=== PATIENT | female | born 1960 | race Caucasian/White ===

== ENCOUNTER 2020-10-27 12:06 | Emergency (ER) | payer OTHER ==
[2020-10-27] MEDS ORDERED: Aspirin 81 MG Tab.Chew PO ONE (12:23)
[2020-10-27] MEDS ORDERED: Sodium Chloride 0.9% 10 ML Syringe FLUSH PRN (12:23)
[2020-10-27] MEDS ORDERED: Nitroglycerin 0.4 MG Tab.SL SL PRN (12:25)
--- NOTE | 2020-10-27 12:25 | EDM.PDOC ---
ED HPI GENERAL MEDICAL PROBLEM - General Chief Complaint: Chest Pain Stated Complaint: chest pains Time Seen by Provider: 10/27/20 12:24 Source of Information: Reports: Patient, Old Records, RN, RN Notes Reviewed History Limitations: Reports: No Limitations - History of Present Illness INITIAL COMMENTS - FREE TEXT/NARRATIVE: 60 y/o F c/o intermittent Cp x 2 weeks. The episodes of cp have been increasing in frequency and severity over the last two weeks. Pt states it feels somewhat like her acid reflux but not exactly the same. Today pain began while pt was at rest at work about 2 hours ago. The pain feels like pressure center chest, radiating in to the R side of jaw and back, the pain is a 3/10. Pt also experiences R arm numbness with CP and at times feels nauseous and sweaty. Hx of a blood clot in her heart 13 years ago and is on Coumadin. Has not checked her INR since COVID began. Pt has tried taking tums for her pain with no relief. Pt still has her gall bladder. Denies other medical hx, fever, cough, chills, drugs, EtOH, abdominal pain, flank pain, recent trauma, recent illness. Pt states she had a cardiac stress test at [facility] about 2 years Onset: Today Duration: Hour(s): Location: Reports: Chest, Back, Upper Extremity, Right Quality: Reports: Pressure Severity: Mild Improves with: Reports: None Worsens with: Reports: None Treatments FLARE MAN: Reports: Other (see below) Other Treatments FLARE MAN: antacids Right Chest Pain Score (Numeric/FACES): 8 - Related Data Allergies Allergy/AdvReac Type Severity Reaction Status Date / Time metronidazole Allergy Other Verified 10/27/20 12:21 sulfacetamide Allergy Other Verified 10/27/20 12:21 Home Meds: Home Meds Warfarin [Coumadin] 7.5 mg PO 6X10/27/20 [History] Warfarin [Coumadin] 10 mg PO .Tue10/27/20 [History] Past Medical History Cardiovascular History: Reports: Blood Clots/VTE/DVT (Blood clot in heart) Endocrine/Metabolic History: Reports: Obesity/BMI 30+ - Past Surgical History Female Surgical History: Reports: Hysterectomy Social & Family History - Family History Family Medical History: No Pertinent Family History - Living Situation & Occupation Living situation: Reports: with Significant Other Occupation: Employed ED ROS GENERAL - Review of Systems Review Of Systems: Comprehensive ROS is negative, except as noted in HPI. ED EXAM, GENERAL - Physical Exam Exam: See Below Exam Limited By: No Limitations General Appearance: Alert, WD/WN, No Apparent Distress, Anxious, Obese Eye Exam: Bilateral Eye: Normal Inspection (No scleral icterus) Nose: Normal Inspection, Normal Mucosa, No Blood Throat/Mouth: Normal Inspection, Normal Lips, Normal Voice, No Airway Compromise Head: Atraumatic, Normocephalic Neck: Normal Inspection, Supple, Non-Tender, Full Range of Motion Respiratory/Chest: No Respiratory Distress, Lungs Clear, Normal Breath Sounds, No Accessory Muscle Use, Chest Non-Tender Cardiovascular: Normal Peripheral Pulses, Regular Rate, Rhythm, No Edema, No Gallop, No JVD, No Murmur, No Rub GI/Abdominal: Normal Bowel Sounds, Soft, No Mass, Tender (Epigastric, and mild tenderness at RUQ). No: Guarding, Rigid, Rebound (Female) Exam: Deferred Rectal (Female) Exam: Deferred Back Exam: Normal Inspection, Full Range of Motion. No: CVA Tenderness (L), CVA Tenderness (R) Extremities: Normal Inspection, Normal Range of Motion, No Pedal Edema Neurological: Alert, Oriented, Normal Cognition, Normal Gait, No Motor/Sensory Deficits Psychiatric: Normal Affect, Normal Mood Skin Exam: Warm, Dry, Intact, Normal Color, No Rash #1 Interpretation EKG Date: 10/27/20 Time: 12:23 Rhythm: Other (SR) Rate (Beats/Min): 78 Hodges: Normal P-Wave: Present QRS: Normal ST-T: Normal QT: Normal Comparison: NA - No Prior EKG Course - Vital Signs Last Recorded V/S: Last Vital Signs Temp 97.7 F 10/27/20 12:27 Pulse 86 10/27/20 12:27 Resp 16 10/27/20 12:27 BP 162/93 H 10/27/20 12:27 Pulse Ox 99 10/27/20 12:27 - Orders/Labs/Meds Orders: Active Orders 24 hr Category Date Time Status EKG 12 Lead [EKG Documentation Completion] [RC] STAT Care 10/27/20 12:16 Active Peripheral IV Care [RC] . DIRECTED Care 10/27/20 12:23 Active Abdomen Pelvis w Cont [CT] Urgent Exams 10/27/20 12:58 Taken Nitroglycerin [Nitrostat] Med 10/27/20 12:25 Active 0.4 mg SL Q5M PRN Sodium Chloride 0.9% [Saline Flush] Med 10/27/20 12:23 Active 10 ml FLUSH ASDIRECTED PRN Peripheral IV Insertion Adult [OM.PC] Routine Oth 10/27/20 12:23 Ordered Medication Orders Nitroglycerin (Nitrostat) 0.4 mg SL Q5M PRN PRN Reason: Chest Pain Sodium Chloride (Saline Flush) 10 ml FLUSH ASDIRECTED PRN PRN Reason: Keep Vein Open Last Admin: 10/27/20 12:42 Dose: 10 ml Documented by: LANCE Labs: Laboratory Tests 10/27/20 10/27/20 10/27/20 Range/Units 12:30 12:30 12:30 WBC 8.3 (5.0-10.0) 10^3/uL RBC 5.05 (4.2-5.4) 10^6/uL Hgb 15.0 (12.0-16.0) g/dL Hct 42.6 (37.0-47.0) % MCV 84.4 (80-100) fL MCH 29.7 (27.0-34.0) pg MCHC 35.2 H (33.0-35.0) g/dL Plt Count 266 (150-450) 10^3/uL Neut % (Auto) 59.4 (42.2-75.2) % Lymph % (Auto) 30.0 (20.5-50.1) % [place] % (Auto) 8.6 H (2-8) % Eos % (Auto) 1.9 (1.0-3.0) % Baso % (Auto) 0.1 (0.0-1.0) % PT 13.4 H (9.0-12.0) SEC INR 1.4 H (0.9-1.2) APTT 26.0 (22.0-34.0) SEC D-Dimer, Quantitative < 100 (0-400) ng/mL Sodium 138 (136-145) mmol/L Potassium 3.8 (3.5-5.1) mmol/L Chloride 102 (98-107) mmol/L Carbon Dioxide 28 (21-32) mmol/L Anion Gap 11.8 (7-13) mEq/L BUN 16 (7-18) mg/dL Creatinine 0.70 (0.55-1.02) mg/dL Est Cr Clr Drug Dosing 79.01 mL/min Estimated GFR (MDRD) > 60 BUN/Creatinine Ratio 22.9 (No establ ref range) Glucose 110 H (74-99) mg/dL Calcium 9.6 (8.5-10.1) mg/dL Total Bilirubin 0.4 (0.2-1.0) mg/dL AST 29 (15-37) U/L ALT 66 H (14-59) U/L Alkaline Phosphatase 82 (46-116) U/L Troponin I < 0.017 (0.000-0.056) ng/mL B-Natriuretic Peptide 16 (0-100) pg/ml Total Protein 7.6 (6.4-8.2) g/dL Albumin 3.9 (3.4-5.0) g/dL Globulin 3.7 Albumin/Globulin Ratio 1.1 Amylase 47 (25-115) U/L Lipase 160 (73-393) U/L Meds: Medications Generic Name Dose Route Start Last Admin Trade Name Freq PRN Reason Stop Dose Admin Nitroglycerin 0.4 mg 10/27/20 12:25 Nitrostat SL Q5M PRN Chest Pain Sodium Chloride 10 ml 10/27/20 12:23 10/27/20 12:42 Saline Flush FLUSH 10 ml ASDIRECTED PRN Administration Keep Vein Open Discontinued Medications Generic Name Dose Route Start Last Admin Trade Name Freq PRN Reason Stop Dose Admin Aspirin 324 mg 10/27/20 12:23 10/27/20 12:42 Aspirin PO 10/27/20 12:24 324 mg ONETIME ONE Administration Iopamidol 100 ml 10/27/20 12:58 10/27/20 13:48 Isovue-300 (61%) IVPUSH 10/27/20 12:59 75 ml ONETIME ONE Administration - Radiology Interpretation Free Text/Narrative:: [facility] [place] [facility] Final Radiology Report Call: [phone] assistance Online chat: [email or web address] Name: CAROLINA MAX Age: 60Years F Date: 10/27/2020 SSN: -- : 1960 Study: CR CHEST 1V FRONTAL Requesting Physician: LINA SINCLAIR Images: 1 Addl Studies: Provided Clinical History: chest pain Contrast: Contrast Medium: Contrast Amount: Contrast Method: CONFIDENTIALITY STATEMENT This report is intended only for use by the referring physician, and only in a ccordance with law. If you received this in error, call [phone]. Page 1 of 1 PROCEDURE INFORMATION: Exam: XR Chest, 1 View Exam date and time: 10/27/2020 12:32 PM Age: 60 years old Clinical indication: Chest pain TECHNIQUE: Imaging protocol: XR of the chest Views: 1 view. COMPARISON: No relevant prior studies available. FINDINGS: Lungs: No pneumonia or pulmonary edema. Pleural space: No pleural effusion or pneumothorax. Heart/Mediastinum: The cardiac silhouette is not enlarged. The mediastinal contours are normal. Bones/joints: No acute osseous abnormality. Soft tissues: There is a left epicardial fat pad. IMPRESSION: No acute abnormality. Thank you for allowing us to participate in the care of your patient. Dictated and Authenticated by: Panfilo Sams MD 10/27/2020 12:41 PM Central Time ([place] & [place]) - Re-Assessments/Exams Free Text/Narrative Re-Assessment/Exam: 10/27/20 14:22 Onset of symptoms 2 weeks ago. Pt initially worried about her heart. Her initial cardiac evaluation is negative for ACS/AMI, and she has essentially ruled herself out for acute ischemia by waiting 2 weeks to be evaluated. Pt's symptoms as she describes them are more concerning for gallbladder disease. The pain is epigastric, radiates to the right upper back, but also sometimes into the right shoulder and neck. The pain has been recurrent, but not exertional. She often eats, goes to bed and is woke 3 to 4 hours later with intense pain and nausea. She claims that she had a negative cardiac stress test sometimes in the last 2 years at [facility]. I plan to have the pt evaluated by Dr. White in clinic tomorrow at 0900HRS. Departure - Departure Time of Disposition: 14:31 Disposition: Home, Self-Care 01 Condition: Good Clinical Impression: Atypical chest pain, Biliary colic Instructions: Biliary Colic, Adult, Gallbladder Eating Plan Forms: ED Department Discharge Additional Instructions: You have an appointment at [facility] in the surgical clinic with Dr. White at 9:00AM tomorrow morning, October 28. Follow up in clinic with Ami MALIK to discuss alternatives to Warfarin (Coumadin), and to recheck your INR (INR 1.4 today). Also if your cardiac stress test was more than two years ago ask your clinic provider to refer you for another one. Rx: Zofran 4mg (If needed for nausea). Sepsis Event Note (ED) - Focused Exam Vital Signs: Vital Signs Temp Pulse Resp BP Pulse Ox 10/27/20 12:27 97.7 F 86 16 162/93 H 99 - My Orders Last 24 Hours: My Active Orders 10/27/20 12:16 EKG 12 Lead [EKG Documentation Completion] [RC] STAT 10/27/20 12:23 Peripheral IV Care [RC] . DIRECTED Sodium Chloride 0.9% [Saline Flush] 10 ml FLUSH ASDIRECTED PRN Peripheral IV Insertion Adult [OM.PC] Routine 10/27/20 12:25 Nitroglycerin [Nitrostat] 0.4 mg SL Q5M PRN 10/27/20 12:58 Abdomen Pelvis w Cont [CT] Urgent - Assessment/Plan Last 24 Hours: My Active Orders 10/27/20 12:16 EKG 12 Lead [EKG Documentation Completion] [RC] STAT 10/27/20 12:23 Peripheral IV Care [RC] . DIRECTED Sodium Chloride 0.9% [Saline Flush] 10 ml FLUSH ASDIRECTED PRN Peripheral IV Insertion Adult [OM.PC] Routine 10/27/20 12:25 Nitroglycerin [Nitrostat] 0.4 mg SL Q5M PRN 10/27/20 12:58 Abdomen Pelvis w Cont [CT] Urgent
--- NOTE | 2020-10-27 12:42 | CR ---
PROCEDURE INFORMATION: Exam: XR Chest, 1 View Exam date and time: 10/27/2020 12:32 PM Age: 60 years old Clinical indication: Chest pain TECHNIQUE: Imaging protocol: XR of the chest Views: 1 view. COMPARISON: No relevant prior studies available. FINDINGS: Lungs: No pneumonia or pulmonary edema. Pleural space: No pleural effusion or pneumothorax. Heart/Mediastinum: The cardiac silhouette is not enlarged. The mediastinal contours are normal. Bones/joints: No acute osseous abnormality. Soft tissues: There is a left epicardial fat pad. IMPRESSION: No acute abnormality.
[2020-10-27 12:56] LABS: ANION GAP 11.8 mEq/L (7-13); CHLORIDE,CL 102 mmol/L (98-107); SODIUM,NA 138 mmol/L (136-145)
[2020-10-27] MEDS ORDERED: Iopamidol 612 MG/ML 100 ML Bottle IVPUSH ONE (12:58)
--- NOTE | 2020-10-27 14:27 | CT ---
EXAMINATION: Abdomen Pelvis w Cont SEX: Female AGE: 60 years CLINICAL HISTORY: 60-year-old 209 female with postprandial UPPER ABDOMINAL PAIN that "radiates" to the right scapula and shoulder. Hysterectomy. Patient reported on [address] exam to have "fatty liver; hiatus hernia; and inhomogeneously dense uterus (fibroids?)". WBC 8300. Scan technique: Volume acquisition of data emergency CT scan abdomen and pelvis obtained without oral contrast but during the intravenous administration 75 cc nonionic Isovue contrast at 3 cc/s via injector while patient was lying supine on the Siemens multislice scanner [place], [place]. All data archived in the PACS system for storage, reformatting axial/sagittal/coronal planes and study. Interpretation: 1. Homogeneously dense fatty liver normal size and anatomic configuration. No discrete intrahepatic cystic or solid mass lesion and no abnormal dilatation of the intra or extrahepatic biliary ducts. 2. Small sliding hiatus hernia lower middle mediastinum. No gallstones. Stomach, spleen, pancreas and adrenal glands otherwise unremarkable. 3. Normal reniform size, axis and configuration bilaterally. No renal cortical mass lesion and no signs of urolithiasis or obstructive uropathy. Symmetrically distended normal appearing unenhanced urinary bladder. 4. Hysterectomy. No sign of pelvic or abdominal mass lesion. No pelvic, mesenteric or retroperitoneal lymphadenopathy. No ventral wall hernias or signs of mechanical bowel obstruction. 5. No inflammatory "dirty" peritoneal fat. No ascites or free intraperitoneal air. 6. Atheromatous calcifications normal caliber aortoiliac vessels. No aneurysm. Normal cardiac silhouette. Atelectasis left lower lobe but Lung bases otherwise clear. No sign of pericardial or pleural effusion. 7. Osteoporosis. Chronic lower lumbar L5-S1 disc disease. No fracture or dislocation. CONCLUSION: Hysterectomy. Fatty liver. Small hiatus hernia. No sign of acute peritonitis, ventral wall hernia, mechanical bowel obstruction or intra-abdominal malignancy.
== END 2020-10-27 14:49 | disposition home or self-care (01) ==
LOC: DL.ED 12:06
DX: R07.89 Other chest pain (principal); K80.50 Calculus of bile duct without cholangitis or cholecystitis without obstruction; E66.9 Obesity, unspecified; Z88.2 Allergy status to sulfonamides; Z88.1 Allergy status to other antibiotic agents; Z79.01 Long term (current) use of anticoagulants; Z68.33 Body mass index [BMI] 33.0-33.9, adult
CPT/HCPCS: 36415; 71045; 74177; 80053; 82150; 83690; 83880; 84484; 85025; 85379; 85610; 85730; 93005; 93010; 99284; 99285-25; A9270-GY; Q9967

== ENCOUNTER 2022-04-08 10:28 | Emergency (ER) | payer OTHER ==
[2022-04-08] MEDS ORDERED: Sodium Chloride 0.9% 10 ML Syringe FLUSH PRN (10:32)
[2022-04-08] MEDS ORDERED: Sodium Chloride 0.9% 1,000 ML IV ONE (11:09)
[2022-04-08] MEDS ORDERED: Metoclopramide 10 MG/2 ML SDV IVPUSH ONE (11:09)
[2022-04-08 11:23] LABS: ANION GAP 8.8 mEq/L (7-13); CHLORIDE,CL 101 mmol/L (98-107); SODIUM,NA 134 mmol/L (136-145)
[2022-04-08 11:25] LABS: ESTIMATED GFR 97 mL/min (>=60)
[2022-04-08] MEDS ORDERED: Iopamidol 755 Mg/ML 100 ML Bottle IVPUSH ONE (12:11)
[2022-04-08] MEDS ORDERED: Ketorolac 30 MG/ML SDV IVPUSH ONE (12:49)
[2022-04-08] MEDS ORDERED: Acetaminophen 500 MG Tab PO ONE (12:53)
== END 2022-04-08 14:07 | disposition home or self-care (01) ==
LOC: DL.ED 10:28
DX: G43.909 Migraine, unspecified, not intractable, without status migrainosus (principal); E66.9 Obesity, unspecified; Z68.35 Body mass index [BMI] 35.0-35.9, adult; Z88.8 Allergy status to other drugs, medicaments and biological substances; Z79.01 Long term (current) use of anticoagulants
CPT/HCPCS: 36415; 70450; 70460; 70491; 80053; 81003; 83690; 83735; 83880; 84443; 84484; 85025; 85379; 85610; 86140; 93005; 96361; 96374; 99284; A9270; J2765; J3490; J7030; Q9967; 93010